=== PATIENT | male | born 1990 | race Hispanic/Latino ===

== ENCOUNTER 2022-08-16 07:34 | Outpatient (CLI) | payer BC | END 2022-08-16 07:35 | disposition home or self-care (01) | LOC: BICCT 07:34 | PROVIDERS: ATTEND Physician Assistant Medical | DX: R63.4 Abnormal weight loss (principal); R10.13 Epigastric pain; R11.2 Nausea with vomiting, unspecified; K86.1 Other chronic pancreatitis; Z87.19 Personal history of other diseases of the digestive system; Z83.79 Family history of other diseases of the digestive system | CPT/HCPCS: 74170 ==